=== PATIENT | male | born 1995 | race Caucasian/White ===

== ENCOUNTER 2019-06-28 10:43 | Emergency (ER) | payer MEDICAID ==
[~2019-06-28] VITALS: Ht 170.2 cm; Wt 63.5 kg
[2019-06-28 11:13] LABS: Basophils # (auto) 0 uL; Basophils % (auto) 0.7 % (0.0-2.0); Eosinophils # (auto) 0.1 uL; Eosinophils % (auto) 2.5 % (0.0-7.0); Hematocrit 41.8 % (41.0-53.0); Hemoglobin 13.8 g/dL (13.5-17.5); Lymphocytes # (auto) 1.4 uL; Lymphocytes % (auto) 36.9 % (10.0-50.0); Mean Corpuscular Hemoglobin 28.3 pg (28.0-32.0); Mean Corpuscular Hgb Conc. 33.1 g/dL (32.0-36.0); Mean Corpuscular Volume 85.6 fL (80.0-100.0); Monocytes # (auto) 0.4 uL; Monocytes % (auto) 10.1 % (0.0-12.0); Neutrophils # (auto) 1.9 uL; Neutrophils % (auto) 49.8 % (37.0-80.0); Nucleated Red Blood Cells % 0.1 %; Platelet Count (auto) 175 10^3/uL (140-450); Red Blood Cells 4.88 10^6/uL (4.5-5.90); Red Cell Distribution Width 14.9 % (11.8-14.3); White Blood Cell 3.8 10^3/uL (4.4-10.8)
[2019-06-28 11:37] LABS: Alanine Aminotransferase 22 U/L (16-61); Albumin 3.4 g/dL (3.4-5.0); Anion Gap 5 (5-15); Aspartate Aminotransferase 34 U/L (15-37); Blood Alcohol < 3.0 mg/dL (0-5); Blood Urea Nitrogen 15 mg/dL (7-18); Calcium 8.6 mg/dL (8.5-10.1); Carbon Dioxide 29 mmol/L (21-32); Chloride 104 mmol/L (98-107); Glucose 123 mg/dL (74-106); Potassium 4.4 mmol/L (3.5-5.1); Sodium 138 mmol/L (136-145)
[2019-06-28 11:40] LABS: Alkaline Phosphatase 123 U/L (45-117); BUN/Creatinine Ratio 17.2; Bilirubin, Total 0.3 mg/dL (0.2-1.0); GFR African American 139 mL/min; GFR Non-African American 115 mL/min; Total Protein 7.3 g/dL (6.4-8.2)
[2019-06-28 13:45] VITALS: BP 130/85
== END 2019-06-28 14:24 | disposition home or self-care (01) ==
LOC: EDBD 10:43 → ER 10:43
DX: T50.7X1A Poisoning by analeptics and opioid receptor antagonists, accidental (unintentional), initial encounter (principal); R40.20 Unspecified coma; F17.210 Nicotine dependence, cigarettes, uncomplicated; F12.10 Cannabis abuse, uncomplicated; F15.10 Other stimulant abuse, uncomplicated; F14.10 Cocaine abuse, uncomplicated; Z59.0 Homelessness; Y92.9 Unspecified place or not applicable
CPT/HCPCS: 36415; 80053; 80320; 85025

== ENCOUNTER 2020-05-15 14:41 | Emergency (ER) | payer MEDICAID ==
[~2020-05-15] VITALS: Ht 172.7 cm; Wt 68.0 kg
[2020-05-15 15:00] VITALS: BP 121/79
[2020-05-15] MEDS ORDERED: SODIUM CHLORIDE 0.9% 1,000 ML IV ONE (15:00)
== END 2020-05-15 15:03 | disposition left against medical advice (07) ==
LOC: ER 14:41 → EDBD 14:41 → ER 15:03
DX: T50.901A Poisoning by unspecified drugs, medicaments and biological substances, accidental (unintentional), initial encounter (principal); F17.210 Nicotine dependence, cigarettes, uncomplicated; X58.XXXA Exposure to other specified factors, initial encounter; Y93.89 Activity, other specified; Y92.89 Other specified places as the place of occurrence of the external cause; Y99.8 Other external cause status

== ENCOUNTER 2020-10-01 15:02 | Emergency (ER) | payer MEDICAID ==
[2020-10-01] MEDS ORDERED: SODIUM CHLORIDE 0.9% 1,000 ML IV ONE (15:15)
== END 2020-10-01 15:05 | disposition left against medical advice (07) ==
LOC: EDUNIT# 15:02 → ER 15:02 → EDBD 15:02 → ER 15:05
DX: R55 Syncope and collapse (principal); F17.210 Nicotine dependence, cigarettes, uncomplicated; F12.10 Cannabis abuse, uncomplicated; Z53.29 Procedure and treatment not carried out because of patient's decision for other reasons

== ENCOUNTER 2020-11-13 00:10 | Emergency (ER) | payer MEDICAID ==
[~2020-11-13] VITALS: Ht 170.2 cm; Wt 68.0 kg
[2020-11-13 02:07] LABS: Basophils # (auto) 0 10 ^3/uL (0-0.2); Basophils % (auto) 0.2 % (0.0-2.0); Eosinophils # (auto) 0.1 10 ^3/uL (0-0.8); Eosinophils % (auto) 2.2 % (0.0-7.0); Hematocrit 46.5 % (41.0-53.0); Hemoglobin 15.6 g/dL (13.5-17.5); Lymphocytes # (auto) 1.8 10 ^3/uL (0.4-5.4); Lymphocytes % (auto) 36.9 % (10.0-50.0); Mean Corpuscular Hemoglobin 28.9 pg (28.0-32.0); Mean Corpuscular Hgb Conc. 33.5 g/dL (32.0-36.0); Mean Corpuscular Volume 86.3 fL (80.0-100.0); Monocytes # (auto) 0.5 10 ^3/uL (0-1.3); Monocytes % (auto) 10.4 % (0.0-12.0); Neutrophils # (auto) 2.4 10 ^3/uL (1.6-8.6); Neutrophils % (auto) 50.3 % (37.0-80.0); Nucleated Red Blood Cells % 0.1 %; Red Blood Cells 5.39 10^6/uL (4.5-5.90); Red Cell Distribution Width 14.8 % (11.8-14.3); White Blood Cell 4.7 10^3/uL (4.4-10.8)
[2020-11-13 02:25] LABS: Albumin 4.2 g/dL (3.4-5.0); BUN/Creatinine Ratio 18.5; Calcium 8.7 mg/dL (8.5-10.1); Salicylate < 1.7 mg/dL (2.8-20.0)
[2020-11-13 02:28] LABS: Bilirubin, Total 0.6 mg/dL (0.2-1.0); Total Protein 8.1 g/dL (6.4-8.2)
[2020-11-13 02:49] LABS: Acetaminophen < 2.0 ug/mL (10-30)
[2020-11-13 02:52] LABS: Amphetamine Screen, Urine POSITIVE (NEGATIVE); Barbiturate Scree,Urine NEGATIVE (NEGATIVE); Benzodiazephine Screen, Urine NEGATIVE (NEGATIVE); Cannabinoid Screen, Urine POSITIVE (NEGATIVE); Cocaine Screen, Urine NEGATIVE (NEGATIVE); Opiate Scree,Urine NEGATIVE (NEGATIVE); Phencyclidine Screen, Urine NEGATIVE (NEGATIVE)
[2020-11-13 03:28] LABS: Urine Bacteria MOD /hpf (None Seen); Urine Blood TRACE /uL (Negative); Urine Specific Gravity 1.034 (1.001-1.035); Urine Sperm PRESENT /hpf (None Seen); Urine WBC 8 /hpf (0 - 3)
[2020-11-13 09:57] VITALS: BP 123/76
== END 2020-11-13 10:08 | disposition home or self-care (01) ==
LOC: ER 00:10 → EDUNIT# 00:10 → EDBD 00:10 → ER 10:08
DX: T50.901A Poisoning by unspecified drugs, medicaments and biological substances, accidental (unintentional), initial encounter (principal); F15.10 Other stimulant abuse, uncomplicated; F11.10 Opioid abuse, uncomplicated; F12.10 Cannabis abuse, uncomplicated; F17.210 Nicotine dependence, cigarettes, uncomplicated; Y92.89 Other specified places as the place of occurrence of the external cause
CPT/HCPCS: 36415; 80053; 80307; 80329; 81001; 85025; 93005

== ENCOUNTER 2021-10-03 09:37 | Emergency (ER) | payer MEDICAID ==
[~2021-10-03] VITALS: Ht 175.3 cm; Wt 72.6 kg
[2021-10-03 10:50] VITALS: BP 114/75
[2021-10-03] MEDS ORDERED: ONDANSETRON HCL 4 MG/2 ML VIAL IV ONE (11:15)
[2021-10-03] MEDS ORDERED: SODIUM CHLORIDE 0.9% 1,000 ML IV ONE (11:15)
[2021-10-03] MEDS ORDERED: NALOXONE HCL 1MG/ML 2ML SYRINGE IV ONE (11:15)
[2021-10-03 11:17] LABS: Basophils # (auto) 0 10 ^3/uL (0-0.2); Basophils % (auto) 0.3 % (0.0-2.0); Eosinophils # (auto) 0 10 ^3/uL (0-0.8); Eosinophils % (auto) 0.2 % (0.0-7.0); Hematocrit 40.4 % (41.0-53.0); Hemoglobin 13.8 g/dL (13.5-17.5); Lymphocytes # (auto) 0.4 10 ^3/uL (0.4-5.4); Mean Corpuscular Hemoglobin 28.9 pg (28.0-32.0); Mean Corpuscular Volume 84.9 fL (80.0-100.0); Monocytes # (auto) 0.8 10 ^3/uL (0-1.3); Monocytes % (auto) 11.9 % (0.0-12.0); Neutrophils # (auto) 5.6 10 ^3/uL (1.6-8.6); Neutrophils % (auto) 81.6 % (37.0-80.0); Red Blood Cells 4.76 10^6/uL (4.5-5.90); Red Cell Distribution Width 14.7 % (11.8-14.3); White Blood Cell 6.9 10^3/uL (4.4-10.8)
[2021-10-03 11:29] LABS: Albumin 3.7 g/dL (3.4-5.0); Calcium 8.6 mg/dL (8.5-10.1); Salicylate < 1.7 mg/dL (2.8-20.0)
[2021-10-03 11:34] LABS: Bilirubin, Total 0.4 mg/dL (0.2-1.0); Total Protein 7.3 g/dL (6.4-8.2)
[2021-10-03 12:30] LABS: Acetaminophen < 10.0 ug/mL (10-30); Potassium 2.9 mmol/L (3.5-5.1)
== END 2021-10-03 12:01 | disposition left against medical advice (07) ==
LOC: EDBD 09:37 → ER 09:37
DX: T40.412A Poisoning by fentanyl or fentanyl analogs, intentional self-harm, initial encounter (principal); F15.10 Other stimulant abuse, uncomplicated; R41.82 Altered mental status, unspecified; E87.6 Hypokalemia; F17.210 Nicotine dependence, cigarettes, uncomplicated; Y92.89 Other specified places as the place of occurrence of the external cause
CPT/HCPCS: 36415; 71045; 80053; 80329; 84484; 85025; 93005; 96361; 96374; 96375; 99285; J2310; J2405; J7030

== ENCOUNTER 2021-11-04 10:40 | Emergency (ER) | payer MEDICAID ==
[~2021-11-04] VITALS: Ht 172.7 cm; Wt 65.8 kg
[2021-11-04] MEDS ORDERED: AZIT1POW PO (12:21)
[2021-11-04 12:35] VITALS: BP 109/58
== END 2021-11-04 12:20 | disposition home or self-care (01) ==
LOC: EDBD 10:40 → ER 10:40
DX: S20.219A Contusion of unspecified front wall of thorax, initial encounter (principal); T40.411A Poisoning by fentanyl or fentanyl analogs, accidental (unintentional), initial encounter; F17.210 Nicotine dependence, cigarettes, uncomplicated; X58.XXXA Exposure to other specified factors, initial encounter; Y93.89 Activity, other specified; Y92.89 Other specified places as the place of occurrence of the external cause; Y99.8 Other external cause status
CPT/HCPCS: 71046; 93005

== ENCOUNTER 2022-01-19 22:39 | Emergency (ER) | payer MEDICAID ==
[~2022-01-19] VITALS: Ht 167.6 cm; Wt 80.0 kg
[~2022-01-19 22:39] MED LIST: AZIT1POW PO
[2022-01-20 03:01] LABS: Basophils # (auto) 0 10 ^3/uL (0-0.2); Basophils % (auto) 0.2 % (0.0-2.0); Eosinophils # (auto) 0.1 10 ^3/uL (0-0.8); Eosinophils % (auto) 0.6 % (0.0-7.0); Hematocrit 45.1 % (41.0-53.0); Hemoglobin 15.5 g/dL (13.5-17.5); Lymphocytes # (auto) 0.3 10 ^3/uL (0.4-5.4); Lymphocytes % (auto) 2.9 % (10.0-50.0); Mean Corpuscular Hemoglobin 28.9 pg (28.0-32.0); Mean Corpuscular Hgb Conc. 34.3 g/dL (32.0-36.0); Mean Corpuscular Volume 84.1 fL (80.0-100.0); Monocytes # (auto) 0.4 10 ^3/uL (0-1.3); Monocytes % (auto) 4.5 % (0.0-12.0); Neutrophils # (auto) 8.9 10 ^3/uL (1.6-8.6); Neutrophils % (auto) 91.8 % (37.0-80.0); Nucleated Red Blood Cells % 0.1 %; Red Blood Cells 5.36 10^6/uL (4.5-5.90); Red Cell Distribution Width 14.2 % (11.8-14.3); White Blood Cell 9.7 10^3/uL (4.4-10.8)
[2022-01-20 03:16] LABS: INR 0.98 (0.9-1.15); Partial Thromboplastin Time 28.4 sec (24.6-33.4)
[2022-01-20 03:17] LABS: Albumin 3.9 g/dL (3.4-5.0); Calcium 8.7 mg/dL (8.5-10.1); Potassium 4.1 mmol/L (3.5-5.1)
[2022-01-20 03:21] LABS: BUN/Creatinine Ratio 35.4; Bilirubin, Total 0.7 mg/dL (0.2-1.0); Total Protein 7.7 g/dL (6.4-8.2)
[2022-01-20 07:10] VITALS: BP 128/71
== END 2022-01-20 07:42 | disposition home or self-care (01) ==
LOC: EDUNIT# 22:39 → EDBD 22:39 → ER 22:41
DX: R11.2 Nausea with vomiting, unspecified (principal); T62.0X4A Toxic effect of ingested mushrooms, undetermined, initial encounter; F17.210 Nicotine dependence, cigarettes, uncomplicated; Z79.2 Long term (current) use of antibiotics; Y92.89 Other specified places as the place of occurrence of the external cause
CPT/HCPCS: 36415; 80053; 85025; 85610; 85730

== ENCOUNTER 2022-11-07 00:34 | Emergency (ER) | payer MEDICAID ==
[~2022-11-07] VITALS: Ht 172.7 cm; Wt 63.2 kg
[2022-11-07 00:54] VITALS: BP 122/81
[2022-11-07] MEDS ORDERED: cefTRIAXone SOD 1,000 MG VL IM ONE (02:00)
[2022-11-07] MEDS ORDERED: TETANUS-DIPTH-ACEL PERTUSSIS 0.5ML SYR Tdap IM ONE (02:00)
[2022-11-07] MEDS ORDERED: AUG875T PO (02:03)
== END 2022-11-07 02:26 | disposition home or self-care (01) ==
LOC: ER 00:34
DX: S31.815A Open bite of right buttock, initial encounter (principal); S41.151A Open bite of right upper arm, initial encounter; F17.210 Nicotine dependence, cigarettes, uncomplicated; F12.10 Cannabis abuse, uncomplicated; F15.10 Other stimulant abuse, uncomplicated; F14.10 Cocaine abuse, uncomplicated; W54.0XXA Bitten by dog, initial encounter; Y93.89 Activity, other specified; Y92.89 Other specified places as the place of occurrence of the external cause; Y99.8 Other external cause status
CPT/HCPCS: 90471; 90715; 96372; 99284; J0696

== ENCOUNTER 2022-11-09 14:41 | Emergency (ER) | payer MEDICAID ==
[~2022-11-09] VITALS: Ht 172.7 cm; Wt 67.0 kg
[~2022-11-09 14:41] MED LIST changes: +AUG875T PO
[2022-11-09] MEDS ORDERED: HYDROcodone-ACET 10/325MG TAB PO ONE (15:30)
[2022-11-09] MEDS ORDERED: KETOROLAC TROMETH 60MG/2ML VIAL IM ONE (15:30)
[2022-11-09] MEDS ORDERED: AUG875T PO (15:49)
[2022-11-09] MEDS ORDERED: MAX35OO TOP (15:49)
[2022-11-09 16:26] VITALS: BP 111/61
== END 2022-11-09 16:30 | disposition home or self-care (01) ==
LOC: ER 14:41
DX: S41.111D Laceration without foreign body of right upper arm, subsequent encounter (principal); F17.210 Nicotine dependence, cigarettes, uncomplicated; F15.90 Other stimulant use, unspecified, uncomplicated; F19.90 Other psychoactive substance use, unspecified, uncomplicated; Z79.899 Other long term (current) drug therapy

== ENCOUNTER 2022-11-10 19:36 | Emergency (ER) | payer MEDICAID ==
[~2022-11-10] VITALS: Ht 172.7 cm; Wt 63.0 kg
[~2022-11-10 19:36] MED LIST changes: +MAX35OO TOP
[2022-11-11] MEDS ORDERED: cefTRIAXone SOD 1,000 MG VL IM ONE (00:30)
[2022-11-11 02:20] VITALS: BP 116/69
== END 2022-11-11 01:17 | disposition home or self-care (01) ==
LOC: ER 19:36
DX: S41.151D Open bite of right upper arm, subsequent encounter (principal); F17.210 Nicotine dependence, cigarettes, uncomplicated; Z59.00 Homelessness unspecified; W54.0XXD Bitten by dog, subsequent encounter
CPT/HCPCS: 96372; 99283; J0696

== ENCOUNTER 2022-11-17 19:02 | Emergency (ER) | payer MEDICAID ==
[~2022-11-17] VITALS: Ht 172.7 cm; Wt 63.7 kg
[2022-11-18 00:52] VITALS: BP 114/73; PULSE 71; RESP 16; TEMP 97.6; O2SAT 100
== END 2022-11-18 03:50 | disposition left against medical advice (07) ==
LOC: ER 19:02 → EDBD 19:02 → ER 11-18 01:50
DX: T50.7X1A Poisoning by analeptics and opioid receptor antagonists, accidental (unintentional), initial encounter (principal); T40.601A Poisoning by unspecified narcotics, accidental (unintentional), initial encounter; F15.10 Other stimulant abuse, uncomplicated; Z59.00 Homelessness unspecified; F17.210 Nicotine dependence, cigarettes, uncomplicated; F12.10 Cannabis abuse, uncomplicated; Y92.9 Unspecified place or not applicable

== ENCOUNTER 2023-05-26 13:10 | Emergency (ER) | payer MEDICAID ==
[~2023-05-26] VITALS: Ht 172.7 cm; Wt 63.6 kg
[2023-05-26 14:18] LABS: Basophils # (auto) 0 10 ^3/uL (0-0.2); Basophils % (auto) 0.3 % (0.0-2.0); Eosinophils # (auto) 0.1 10 ^3/uL (0-0.8); Eosinophils % (auto) 1.3 % (0.0-7.0); Hematocrit 45.4 % (41.0-53.0); Hemoglobin 15.1 g/dL (13.5-17.5); Lymphocytes # (auto) 1.2 10 ^3/uL (0.4-5.4); Lymphocytes % (auto) 26.3 % (10.0-50.0); Mean Corpuscular Hemoglobin 28.3 pg (28.0-32.0); Mean Corpuscular Hgb Conc. 33.2 g/dL (32.0-36.0); Mean Corpuscular Volume 85.3 fL (80.0-100.0); Monocytes # (auto) 0.4 10 ^3/uL (0-1.3); Monocytes % (auto) 7.9 % (0.0-12.0); Neutrophils # (auto) 2.9 10 ^3/uL (1.6-8.6); Neutrophils % (auto) 64.2 % (37.0-80.0); Nucleated Red Blood Cells % 0.3 %; Red Blood Cells 5.33 10^6/uL (4.5-5.90); Red Cell Distribution Width 14.9 % (11.8-14.3); White Blood Cell 4.5 10^3/uL (4.4-10.8)
[2023-05-26 14:32] LABS: Anion Gap 5 (5-15); Carbon Dioxide 31 mmol/L (20-30); Chloride 104 mmol/L (98-107); Potassium 3.9 mmol/L (3.5-5.1); Sodium 140 mmol/L (136-145)
[2023-05-26 14:37] LABS: Glucose 59 mg/dL (74-106)
[2023-05-26 14:38] LABS: Blood Urea Nitrogen 11 mg/dL (9-23)
[2023-05-26 15:20] VITALS: BP 125/65; PULSE 63; RESP 17; TEMP 98.9; O2SAT 100
== END 2023-05-26 15:36 | disposition home or self-care (01) ==
LOC: EDBD 13:10 → ER 13:10
DX: S70.01XA Contusion of right hip, initial encounter (principal); M25.552 Pain in left hip; M79.662 Pain in left lower leg; F17.210 Nicotine dependence, cigarettes, uncomplicated; Z59.00 Homelessness unspecified; Z79.2 Long term (current) use of antibiotics; V23.49XA Other motorcycle driver injured in collision with car, pick-up truck or van in traffic accident, initial encounter; Y93.89 Activity, other specified; Y92.410 Unspecified street and highway as the place of occurrence of the external cause; Y99.8 Other external cause status
CPT/HCPCS: 36415; 72170; 80048; 85025

== ENCOUNTER 2024-01-23 21:29 | Emergency (ER) | payer MEDICAID ==
[~2024-01-23] VITALS: Ht 172.7 cm; Wt 63.0 kg
[2024-01-23 21:43] VITALS: BP 119/76; PULSE 75; RESP 18; O2SAT 100
== END 2024-01-23 22:26 | disposition left against medical advice (07) ==
LOC: ER 21:29 → EDBD 21:29 → ER 22:26
DX: T40.411A Poisoning by fentanyl or fentanyl analogs, accidental (unintentional), initial encounter (principal); F17.210 Nicotine dependence, cigarettes, uncomplicated; F12.10 Cannabis abuse, uncomplicated; F15.10 Other stimulant abuse, uncomplicated; Z59.00 Homelessness unspecified; Y92.89 Other specified places as the place of occurrence of the external cause